=== PATIENT | female | born 1980 | race Hispanic/Latino ===

== ENCOUNTER 2023-05-31 06:12 | Day surgery (SDC) | payer OTHER ==
[2023-05-29 15:17] VITALS: BP 142/75; PULSE 97; RESP 15
[~2023-05-31] VITALS: Ht 167.6 cm; Wt 92.2 kg
[2023-05-31] VITALS (11 sets, daily range): BP systolic 102–122; BP diastolic 59–78; PULSE 78–95; RESP 13–18
[2023-05-31] MEDS ORDERED: PROPOFOL 10 MG/ML 20ML VIAL IV ONE ×2 (08:41)
[2023-05-31] MEDS ORDERED: 0.9%NACL 1000ML 1,000 ML IV ONE (09:01)
== END 2023-05-31 10:25 | disposition home or self-care (01) ==
LOC: ENDO 06:12 → DAH 06:12 → ENDO 10:25
PROVIDERS: ATTEND Internal Medicine
DX: R93.3 Abnormal findings on diagnostic imaging of other parts of digestive tract (principal); R10.13 Epigastric pain; K29.60 Other gastritis without bleeding; K76.0 Fatty (change of) liver, not elsewhere classified; D64.9 Anemia, unspecified; Z52.6 Liver donor; Z79.899 Other long term (current) drug therapy
CPT/HCPCS: 81025; 43239; J7030 ×2; J2704 ×2; A4620; A4215 ×2; A4223; A7002; A4222; A4221; A4663; A4216; A4606; J3490